=== PATIENT | female | born 1990 | race Caucasian/White ===

== ENCOUNTER 2019-11-20 10:08 | Inpatient (IN) | payer OTHER ==
[2019-11-15 16:04] VITALS: BMI 36.4
[2019-11-20] MEDS ORDERED: CITRIC ACID-SODIUM CITRATE 15 ML CUP PO ONE (10:14)
[2019-11-20] MEDS ORDERED: LACTATED RINGERS 1,000 ML IV SCH (10:15)
[2019-11-20 10:56] LABS: Basophils # (A) 0.1 k/uL (0-0.2); Basophils % (A) 1 %; Eosinophils # (A) 0.1 k/uL (0-0.7); Eosinophils % (A) 1 %; HCT 38.6 % (34.0-46.0); HGB 12.9 gm/dL (11.4-16.0); Lymphocytes # (A) 1.3 k/uL (1.0-4.8); Lymphocytes % (A) 13 %; MCH 30.5 pg (25.0-35.0); MCHC 33.4 g/dL (31.0-37.0); MCV 91.2 fL (80.0-100.0); Mean Platelet Volume 10.1; Monocytes # (A) 0.5 k/uL (0-1.0); Monocytes % (A) 5 %; Neutrophils # (A) 7.8 k/uL (1.3-7.7); Neutrophils % (A) 78 %; Platelet Count 187 k/uL (150-450); RBC 4.23 m/uL (3.80-5.40); RDW 13.4 % (11.5-15.5)
[2019-11-20] MEDS ORDERED: OXYTOCIN 10 UNIT/ML 1 ML VIAL ONE (12:00)
[2019-11-20] MEDS ORDERED: MORPHINE SULFATE (PF) 0.3 MG/0.3 ML SYR ONE (12:00)
[2019-11-20] MEDS ORDERED: ONDANSETRON 4 MG/2 ML VIAL ONE (12:00)
[2019-11-20] MEDS ORDERED: ePHEDrine SULFATE/0.9% NACL/PF 50 MG/5 ML SYRINGE IV ONE (12:00)
[2019-11-20] MEDS ORDERED: KETOROLAC 30 MG/ML 1 ML VIAL ONE (12:00)
--- NOTE | 2019-11-20 12:03 | P.HPOB ---
History of Present Illness H&P Date: 11/20/19 Chief Complaint: Here for repeat and tubal ligation This is a 29-year-old white female 3 para 1011 EDC 11/27/2019 at 39 weeks gestation. Patient presents today for section repeat, and tubal ligation. She had a previous section in 2013 and is declining option for . In addition she reports no vaginal bleeding, no uterine contractions, no fluid leakage. Fetus is been active throughout the . Past medical history significant for [id number]-iza pelvic obstruction with a right ureteral surgery 2010. Past surgical history section 2013, pyeloplasty 2010, thyroidectomy 2013. Current medications levothyroxine 150 mg daily, vitamin daily. ALLERGIES none known. Family history significant for heart disease, diabetes, Crohn's disease. Social history patient is single, she is never been a smoker, she denies alcohol or drug use. history is significant for blood type B+, rubella status immune. VDRL testing, urine culture, gonorrhea and chlamydia cultures, hepatitis B surface antigen, HIV testing all negative. One-hour Glucola 121. One-hour GTT elevated at 166, 3 hour GTT within normal limits. Group B strep cultures negative. On exam this is a pleasant white female who is 5 foot 8 inches, 224 pounds, initial blood pressure 150/93, pulse 103. General physical exam is otherwise within normal limits. Reactive NST noted on monitoring. Cervix is long, posterior, closed. Impression: 39 week intrauterine , previous section, undesired fertility. Requesting repeat and tubal ligation. Plan: We will proceed with primary low transverse section. Tubal ligation via Filshie clips. All questions reviewed and answered. Review of Systems Constitutional: Reports as per HPI Past Medical History Past Medical History: Cancer, Thyroid Disorder Additional Past Medical History / Comment(s): DX THYROID CANCER 02/2014, hx of kidney stones History of Any Multi-Drug Resistant Organisms: MRSA Date of last positivie culture/infection: 2008 MDRO Source:: face Past Surgical History: Section Additional Past Surgical History / Comment(s): bilateral Ureter stenosis (2010) had ureter stent now removed ; thyroidectomy 05/2014, lithotripsy Past Anesthesia/Blood Transfusion Reactions: Previous Problems w/ Anesthesia Additional Past Anesthesia/Blood Transfusion Reaction / Comment(s): woke up while intubated during lithotripsy Past Psychological History: Anxiety Smoking Status: Never smoker Past Alcohol Use History: None Reported Past Drug Use History: None Reported - Past Family History Mother Family Medical History: No Reported History Medications and Allergies Home Medications Medication Instructions Recorded Confirmed Type Hrb-Xcoa-Dgyyk Acid 1 each PO DAILY 04/29/14 11/20/19 History [-U Capsule (formulary)] Escitalopram [Lexapro] 10 mg PO HS 11/15/19 11/20/19 History Levothyroxine Sodium [Synthroid] 150 mcg PO QAM 11/15/19 11/20/19 History Allergies Allergy/AdvReac Type Severity Reaction Status Date / Time No Known Allergies Allergy Verified 11/20/19 10:14 Exam Vital Signs Temp Pulse Resp BP 11/20/19 10:18 96.4 F L 103 H 18 150/93 Intake and Output 11/19/19 11/20/19 11/20/19 22:59 06:59 14:59 Other: Weight 101.605 kg See dictation under HPI please Results Result Diagrams: 11/20/19 10:45 Abnormal Lab Results - Last 24 Hours (Table) 11/20/19 Range/Units 10:45 Neutrophils # 7.8 H (1.3-7.7) k/uL Assessment and Plan Assessment: 39 week intrauterine , undesired fertility, repeat section as patient is declining . Plan: AST, ALTs, uric acid. Antibiotics are given. For repeat and tubal ligation. All consents reviewed signed witnessed and dated. Time with Patient: Less than 30
[2019-11-20 12:32] LABS: Appearance,Urine Clear (Clear); Bilirubin,Urine Negative (Negative); Blood,Urine Negative (Negative); Color,Urine Yellow; Glucose,Urine (UA) Negative (Negative); Ketones,Urine Negative (Negative); Leukocyte Esterase,Urine Negative (Negative); Nitrite,Urine Negative (Negative); PH, Urine 6.5 (5.0-8.0); Protein,Urine Negative (Negative); Urobilinogen,Urine <2.0 mg/dL (<2.0)
[2019-11-20 12:48] LABS: Protein/Creatinine Ratio,Urine 0.083
[2019-11-20] MEDS ORDERED: NALOXONE 0.4 MG/ML 1 ML VIAL IV PRN (12:51)
[2019-11-20] MEDS ORDERED: METOCLOPRAMIDE 5 MG/ML 2 ML VIAL IVP PRN (12:51)
[2019-11-20] MEDS ORDERED: ACETAMINOPHEN TAB 325 MG TAB PO PRN (12:51)
[2019-11-20] MEDS ORDERED: diphenhydrAMINE 25 MG CAP PO PRN (12:51)
[2019-11-20] MEDS ORDERED: ZOLPIDEM 5 MG TAB PO PRN (12:51)
[2019-11-20] MEDS ORDERED: SIMETHICONE 80 MG CHEWABLE PO PRN (12:51)
[2019-11-20] MEDS ORDERED: ONDANSETRON 4 MG/2 ML VIAL IVP PRN (12:51)
[2019-11-20] MEDS ORDERED: diphenhydrAMINE 50 MG CAP PO PRN (12:51)
[2019-11-20] MEDS ORDERED: diphenhydrAMINE 50 MG/ML 1 ML VIAL IVP PRN (12:51)
--- NOTE | 2019-11-20 12:51 | P.OP ---
Date of Procedure: 11/20/19 Preoperative Diagnosis: 39 week gestation, undesired fertility, previous section declining . Positive group B strep cultures. Postoperative Diagnosis: Same, liveborn female infant, nuchal cord 2. Procedure(s) Performed: Repeat low transverse section, tubal ligation with Filshie clips Anesthesia: spinal Surgeon: Cecilia Steel Bulk Intake Worker #1: Madhu Mcgregor Estimated Blood Loss (ml): 400 IV fluids (ml): 1,000 Urine output (ml): 200 Pathology: none sent Condition: stable Disposition: PACU Description of Procedure: Patient is brought to the operative suite where a spinal analgesia is administered. She's placed in the dorsal lithotomy position. The abdomen is prepped and draped in usual sterile fashion. Polo catheter placed to direct drainage. The appropriate timeout is performed to assure proper patient and procedural identification. Patient's request for tubal ligation is once again confirmed. Antibiotics are given. The abdomen is checked with a hemostatic pinch, anesthesia is noted to be adequate. A repeat low transverse skin incision is made over the previous scar. This is taken down through the subcutaneous tissue to the fascia. Fascia is isolated, scored, extended bilaterally with curved Covington scissors. Peritoneum is next identified and incised, there is no bowel or bladder involvement. Bladder flap is created with Metzenbaum scissors and the bladder flap is placed over the dome of the bladder. Bladder is at all times Well from the operative field to avoid injury of the bladder or ureters. A repeat low transverse uterine incision is made and extended with blunt dissection. Infant's head is delivered in the occiput anterior position. There is a nuchal cord 2 that is reduced. The oropharynx, nasopharynx, and external nares were all bulb hunter ctioned. Patient is officially delivered of a liveborn female at 1221 hours. Umbilical cord is doubly clamped and ligated, she is handed to waiting nurses for evaluation where scores of 8 and 9 at one and 5 minutes respectively are given. The placenta is delivered manually, it is inspected and noted to be intact with trivascular cord at 1222 hours. The uterus is closed in a single full-thickness stitch of 0 Vicryl suture in a running fashion. Excellent reapproximation is noted. The isthmic portion of the tubes is then identified, Filshie clip is placed over the entire diameter of the tube into the mesal salpinx. Care is taken to identify fimbriated ends bilaterally. Ovaries appear normal to inspection. Abdomen is suctioned with suction on guard posterior to the uterus. Uterus is gently placed back into the abdominal cavity. Bilateral gutters are inspected and cleaned. Uterine incision is clean and dry. Peritoneum is allowed to close by secondary intention. Fascia is closed in a running stitch of 0 Vicryl suture. Subcutaneous tissue is irrigated, clean and dry. 3-0 undyed Vicryl is used to reapproximate the subcutaneous tissue. 4-0 undyed Monocryl is used for final skin closure in a subcuticular manner. Steri-Strips and Mastisol are applied to the wound. Uterus is massaged for a scant amount of vaginal bleeding. Polo is noted to be draining clear urine. All sponge needle and enhancement counts are correct at the end of the procedure. Patient is brought back to recovery room in stable condition with a blood pressure 120/53, pulse 87, 100% O2 saturation. Patient and her family are allowed to begin the bonding experience in the LDR. Infant weighs 7 lbs. 7 oz. or 3380 g.
[2019-11-20 13:43] LABS: ALT 22 U/L (4-34); AST 22 U/L (14-36); African American GFR (CKD) >90 (>60 ml/min/1.73 sqM); Blood Urea Nitrogen 12 mg/dL (7-17); LDH 389 U/L (313-618); Non-African American GFR(CKD) >90 (>60 ml/min/1.73 sqM); Uric Acid 5.8 mg/dL (3.7-7.4)
[2019-11-20] MEDS ORDERED: OXYTOCIN 20 UNITS/1000 ML NS 1,000 ML IV SCH (14:00)
[2019-11-20] MEDS: HYDROmorphone 0.5 MG/0.5 ML SYRINGE IVP PRN ×2 (15:50→20:33)
[2019-11-20] MEDS: KETOROLAC 30 MG/ML 1 ML VIAL IVP PRN (18:32)
[2019-11-20] MEDS: diphenhydrAMINE 50 MG/ML 1 ML VIAL IVP PRN (20:34)
[2019-11-20] MEDS: LACTATED RINGERS 1,000 ML IV SCH (22:04)
[2019-11-21] MEDS: diphenhydrAMINE 50 MG/ML 1 ML VIAL IVP PRN (03:19)
[2019-11-21] MEDS: HYDROmorphone 0.5 MG/0.5 ML SYRINGE IVP PRN ×2 (03:20→07:56)
[2019-11-21] MEDS: KETOROLAC 30 MG/ML 1 ML VIAL IVP PRN ×2 (05:08→12:32)
[2019-11-21 07:03] LABS: Basophils % (A) 0 %; Eosinophils # (A) 0.1 k/uL (0-0.7); Eosinophils % (A) 1 %; HCT 34.3 % (34.0-46.0); HGB 11.6 gm/dL (11.4-16.0); Lymphocytes # (A) 1.2 k/uL (1.0-4.8); Lymphocytes % (A) 10 %; MCH 31.1 pg (25.0-35.0); MCHC 33.8 g/dL (31.0-37.0); MCV 92.2 fL (80.0-100.0); Mean Platelet Volume 9.6; Monocytes # (A) 0.6 k/uL (0-1.0); Monocytes % (A) 6 %; Neutrophils # (A) 9.1 k/uL (1.3-7.7); Neutrophils % (A) 82 %; Platelet Count 171 k/uL (150-450); RBC 3.72 m/uL (3.80-5.40); RDW 13.4 % (11.5-15.5); WBC 11.2 k/uL (3.8-10.6)
[2019-11-21] MEDS: SENNOSIDES-DOCUSATE SODIUM 1 EACH TAB PO SCH ×2 (07:57→20:56)
--- NOTE | 2019-11-21 08:19 | P.PN ---
Subjective Progress Note Date: 11/21/19 Principal diagnosis: Postoperative day #1 Denies headache, visual changes, right upper quadrant pain. Objective - Vital Signs Vital signs: Vital Signs Temp 98 F 11/21/19 07:26 Pulse 103 H 11/21/19 07:26 Resp 17 11/21/19 07:26 BP 152/95 11/21/19 07:26 Pulse Ox 95 11/21/19 07:26 Intake & Output 11/20/19 11/21/19 11/21/19 18:59 06:59 18:59 Intake Total 1050 Output Total 550 1450 Balance 500 -1450 Weight 101.605 kg Intake: Intake, IV Titration 1050 Amount Lactated Ringers 1,000 ml 1000 @ 125 mls/hr IV .Q8H [facility] Rx#:[id number] ceFAZolin 2 gm In Sodium 50 Chloride 0.9% 50 ml @ 100 mls/hr IVPB ONCE ONE Rx# :[id number] Output: Urine 150 1450 Uretheral (Polo) 800 Estimated Blood Loss 400 Other: Voiding Method Indwelling Catheter # Voids 1 - Constitutional General appearance: Present: average body habitus, cooperative - EENT Eyes: Present: PERRLA ENT: Present: hearing grossly normal - Neck Neck: Present: normal ROM - Respiratory Respiratory: bilateral: CTA - Cardiovascular Rhythm: regular - Gastrointestinal Gastrointestinal Comment(s): Fundus firm, midline, symmetric, 18 week size. Incision clean and dry, intact, Steri-Strips applied. General gastrointestinal: Present: normal bowel sounds - Integumentary Integumentary: Present: normal - Neurologic Neurologic: Present: CNII-XII intact - Musculoskeletal Musculoskeletal: Present: gait normal - Psychiatric Psychiatric: Present: A&O x's 3, appropriate affect, intact judgment & insight - Labs CBC & Chem 7: 11/21/19 06:24 11/20/19 10:45 Labs: Abnormal Lab Results - Last 24 Hours (Table) 11/20/19 11/21/19 Range/Units 10:45 06:24 WBC 11.2 H (3.8-10.6) k/uL RBC 3.72 L (3.80-5.40) m/uL Neutrophils # 7.8 H 9.1 H (1.3-7.7) k/uL Assessment and Plan Assessment: day #1, blood pressure is slightly high in the 140-150/70 to 90s range. Patient otherwise asymptomatic, with normal PIH labs noted yesterday. Plan: We will begin labetalol 200 mg twice a day. Continue postoperative care. Advanced diet and activity. Possible discharge home tomorrow. Time with Patient: Less than 30
[2019-11-21] MEDS: LABETALOL 200 MG TAB PO SCH ×2 (09:10→20:20)
--- NOTE | 2019-11-21 12:47 | P.PN ---
Progress Note - Text Anesthesia POD 1. 755. Patient is status post section under spinal anesthesia with intra-thecal preservative free morphine 300 g. Mild pruritus, good post-op analgesia, and no headache or other complication.
[2019-11-21] MEDS: IBUPROFEN 600 MG TAB PO PRN ×2 (17:23→23:15)
[2019-11-21 20:24] VITALS: RESP 16
[2019-11-21] MEDS: LACTATED RINGERS 1,000 ML IV SCH (20:55)
--- NOTE | 2019-11-22 07:38 | P.DS ---
Providers Date of admission: 11/20/19 10:08 Expected date of discharge: 11/22/19 Attending physician: Cecilia Steel Primary care physician: Stated None Hospital Course: This is a 29-year-old white female 2 para 1001 EDC 11/27/2019 at 39 weeks gestation. Patient presented for repeat low transverse section and tubal ligation. Evidence he is essentially unremarkable, group B strep cultures positive, blood type B+, rubella status immune. Please see dictated history and physical for details. Patient was admitted and underwent repeat low transverse section. She gave to a liveborn female infant weighing 3380 g. Tubal ligation was performed utilizing Filshie clips. Surgery was unremarkable, normal-appearing anatomy, please see dictated operative note for details. Blood pressure on admission was 150/93, and it remained slightly elevated. PIH labs were checked and within normal limits. Patient was started on labetalol 200 mg twice daily. This morning her blood pressure is 120 to 1:30 over 70s to 80s. She denies headache, visual changes, or right upper quadrant pain. The incision is clean and dry, intact, with Steri-Strips applied. Extremities reveal trace edema. [place]rett is doing well. Breast-feeding is going well. Patient is judged to be in good condition for discharge home. She will follow-up with me in the office in 2 weeks. I've asked her to take her blood pressures daily and document them, and bring them to the office at the 2 week visit. She will continue labetolol 200 mg twice daily, a prescription is written. I have also given her prescription for a double electric breast pump per her request. She is reminded no intercourse, tampons or douching. No heavy lifting. No driving for 2 weeks. She will call with any visual changes, headache, or right upper quadrant pain, or any pain not alleviated by [id number] products. She will use Advil or Aleve, or Motrin 600 mg every 6 hours, and alternate with Tylenol if needed. infant will follow-up with [facility] operations consultant as per recommendations. Patient Condition at Discharge: Good Plan - Discharge Summary New Discharge Prescriptions: No Action Snx-[id number]-[id number] Acid [-U Capsule (formulary)] 1 each PO DAILY Escitalopram [Lexapro] 10 mg PO HS Levothyroxine Sodium [Synthroid] 150 mcg PO QAM Discharge Medication List Kyc-Atgj-Fxsqq Acid [-U Capsule (formulary)] 1 each PO DAILY 04/29/14 [History] Escitalopram [Lexapro] 10 mg PO HS 11/15/19 [History] Levothyroxine Sodium [Synthroid] 150 mcg PO QAM 11/15/19 [History] Follow up Appointment(s)/Referral(s): Cecilia Steel MD [STAFF PHYSICIAN] - 2 Weeks
[2019-11-22] MEDS: IBUPROFEN 600 MG TAB PO PRN (07:52)
[2019-11-22] MEDS: LABETALOL 200 MG TAB PO SCH (08:18)
[2019-11-22 09:02] VITALS: BP 138/88; PULSE 86; TEMP 98.4
== END 2019-11-22 11:30 | disposition home or self-care (01) | DRG 785 ==
LOC: 4FBP 10:08
PROVIDERS: ADMIT Obstetrics & Gynecology; ATTEND Obstetrics & Gynecology
PROC: 10D00Z1 Extraction of Products of Conception, Low, Open Approach (ICD-10-PCS; principal; 2019-11-20 12:00)
PROC: 0UL70CZ Occlusion of Bilateral Fallopian Tubes with Extraluminal Device, Open Approach (ICD-10-PCS; principal; 2019-11-20 12:00)
DX: O34.211 Maternal care for low transverse scar from previous cesarean delivery (principal); O69.81X0 Labor and delivery complicated by cord around neck, without compression, not applicable or unspecified; O99.284 Endocrine, nutritional and metabolic diseases complicating childbirth; E89.0 Postprocedural hypothyroidism; O99.344 Other mental disorders complicating childbirth; F41.9 Anxiety disorder, unspecified; O99.72 Diseases of the skin and subcutaneous tissue complicating childbirth; L29.9 Pruritus, unspecified; Z37.0 Single live birth; Z3A.39 39 weeks gestation of pregnancy; Z79.890 Hormone replacement therapy; Z79.899 Other long term (current) drug therapy; Z87.442 Personal history of urinary calculi; Z85.850 Personal history of malignant neoplasm of thyroid; Z86.14 Personal history of Methicillin resistant Staphylococcus aureus infection; Z30.2 Encounter for sterilization; Z83.3 Family history of diabetes mellitus; Z82.49 Family history of ischemic heart disease and other diseases of the circulatory system; Z83.79 Family history of other diseases of the digestive system
CPT/HCPCS: 81003; 82565; 82570; 83615; 84156; 84450; 84460; 84520; 84550; 85025; 86850; 86900; 86901